=== PATIENT | female | born 1990 | race Caucasian/White ===

== ENCOUNTER 2022-02-12 06:18 | Day surgery (SDC) | payer OTHER ==
[2022-02-11 14:49] VITALS: BMI 22.7
[2022-02-12] MEDS ORDERED: Scopolamine 1.5 mg/72 hour Patch ONE (06:53)
[2022-02-12] MEDS ORDERED: Dexmedetomidine 200 MCG/2 ML VIAL ONE (07:05)
[2022-02-12] MEDS ORDERED: fentaNYL Citrate/PF 100 MCG/2 ML SYRINGE ONE (07:05)
[2022-02-12 07:11] LABS: BHCG - Serum Negative (NEGATIVE); Pregs Control Background? CLEAR/WHITE (CLR/WHITE); Pregs Control Bar Appear? YES (CONTROL BAR)
[2022-02-12] MEDS ORDERED: Dexamethasone 20 MG/5 ML VIAL ONE (07:25)
[2022-02-12] MEDS ORDERED: Ondansetron PF 4 MG/2 ML Vial ONE (07:25)
[2022-02-12] MEDS ORDERED: PROPOFOL 200 MG/20 ML VIAL ONE (07:25)
[2022-02-12] MEDS ORDERED: methylPREDNISolone Acetate 40 mg/ml Vial ONE (07:40)
[2022-02-12] MEDS ORDERED: Fentanyl 100 MCG/2 ML VIAL ONE (08:03)
[2022-02-12] MEDS ORDERED: HYDROcodone/Acetaminophen 5/325 mg Tablet ONE (08:41)
== END 2022-02-12 09:40 | disposition home or self-care (01) ==
LOC: SDC 06:18
PROVIDERS: ATTEND Otolaryngology Plastic Surgery within the Head & Neck
PROC: 0CTQXZZ Resection of Adenoids, External Approach (ICD-10-PCS; principal; 2022-02-12)
PROC: 0CTPXZZ Resection of Tonsils, External Approach (ICD-10-PCS; principal; 2022-02-12)
DX: J35.03 Chronic tonsillitis and adenoiditis (principal); J35.8 Other chronic diseases of tonsils and adenoids
CPT/HCPCS: 84703; 85014; 88304; J1100; J2405; J2704; J2920; J3010